=== PATIENT | male | born 1980 | race Caucasian/White ===

== ENCOUNTER 2018-05-10 12:32 | Emergency (ER) | payer OTHER ==
[~2018-05-10] VITALS: Ht 182.9 cm; Wt 114.0 kg
[2018-05-10 12:47] VITALS: BP 175/117
[2018-05-10] MEDS ORDERED: KETOROLAC 30 MG/1 ML IM ONE (13:00)
[2018-05-10] MEDS ORDERED: HYDROcodone/APAP 10/325 MG TABLET ONE (13:27)
[2018-05-10] MEDS ORDERED: KETOROLAC 30 MG/1 ML ONE (13:27)
[2018-05-10] MEDS ORDERED: HYDROcodone/APAP 10/325 MG TABLET PO ONE (13:30)
[2018-05-10] MEDS ORDERED: COLCHICINE 0.6 MG TABLET PO ONE (13:30)
== END 2018-05-10 14:17 | disposition home or self-care (01) ==
LOC: ED 14:00
DX: M10.061 Idiopathic gout, right knee (principal)
CPT/HCPCS: 96372; 99283; J1885

== ENCOUNTER 2018-06-18 04:44 | Emergency (ER) | payer OTHER ==
[~2018-06-18] VITALS: Ht 182.9 cm; Wt 120.5 kg
[2018-06-18] MEDS ORDERED: HYDROcodone/APAP 5/325 TABLET PO ONE (05:30)
[2018-06-18] MEDS ORDERED: INDOMETHACIN 50 MG CAPSULE PO ONE (05:30)
[2018-06-18] MEDS ORDERED: COLCHICINE 0.6 MG TABLET PO ONE (05:30)
[2018-06-18] MEDS ORDERED: INDOMETHACIN 50 MG CAPSULE ONE (05:42)
[2018-06-18] MEDS ORDERED: HYDROcodone/APAP 5/325 TABLET ONE (05:43)
[2018-06-18] MEDS ORDERED: COLCHICINE 0.6 MG TABLET ONE ×2 (05:43→06:37)
[2018-06-18 07:04] VITALS: BP 133/87
== END 2018-06-18 07:47 | disposition home or self-care (01) ==
LOC: ED 06:45
DX: M10.061 Idiopathic gout, right knee (principal)
CPT/HCPCS: 99284

== ENCOUNTER 2018-07-27 11:33 | Emergency (ER) | payer OTHER ==
[~2018-07-27] VITALS: Ht 182.9 cm; Wt 118.0 kg
[2018-07-27 11:44] VITALS: BP 143/83
[2018-07-27] MEDS ORDERED: KETOROLAC 30 MG/1 ML ONE (12:29)
[2018-07-27] MEDS ORDERED: OXYcodone/APAP 5/325MG TABLET ONE (12:29)
[2018-07-27] MEDS ORDERED: KETOROLAC 30 MG/1 ML IM ONE (12:30)
[2018-07-27] MEDS ORDERED: HYDROcodone/APAP 5/325 TABLET PO ONE (12:30)
[2018-07-27 12:40] LABS: BASOPHILS # (AUTO) 0.03 x10^3/uL (0-0.1); BASOPHILS % (AUTO) 0 % (0-1); EOSINOPHILS # (AUTO) 0.11 x10^3/uL (0-0.4); EOSINOPHILS % (AUTO) 1 % (1-7); LYMPHOCYTES # (AUTO) 1.65 x10^3/uL (1-3.4); LYMPHOCYTES % (AUTO) 16 % (22-44); MD NO; MEAN CORPUSCULAR HEMOGLOBIN 29.8 pg (27.5-34.5); MEAN CORPUSCULAR HGB CONC 34.2 g/dL (33.2-36.2); MEAN CORPUSCULAR VOLUME 87.3 fL (81-97); MEAN PLATELET VOLUME 7.9 fL (7.4-10.4); MONOCYTES % (AUTO) 9 % (2-9); NEUTROPHILS # (AUTO) 7.42 x10^3/uL (1.8-6.8); NEUTROPHILS % (AUTO) 73 % (42-75); PLATELET COUNT 319 x10^3/uL (130-400); RED BLOOD COUNT 5.32 x10^6/uL (4.38-5.82); RED CELL DISTRIBUTION WIDTH 12.4 % (9.4-14.8)
== END 2018-07-27 13:29 | disposition home or self-care (01) ==
LOC: ED 12:34
DX: M10.061 Idiopathic gout, right knee (principal); M10.071 Idiopathic gout, right ankle and foot
CPT/HCPCS: 36415; 84550; 85025; 96372; 99283; J1885